=== PATIENT | female | born 1950 | race Caucasian/White ===

== ENCOUNTER 2017-11-10 10:23 | Emergency (ER) | payer BC ==
[2017-11-10 11:17] VITALS: BP 157/64
--- NOTE | 2017-11-10 11:29 | ED ---
Lower Extremity - HPI Summary HPI Summary: 67-year-old female presents with left thigh injury yesterday. She states that she was babysitting a dog and the dog pulled her into a table when she was walking it. She states that it hit her left thigh outer. States she did her daily activities last night but she's been having increasing pain in the area. States the area feels swollen. She denies any chest pain shortness breath. No numbness or tingling. No previous fracture to the area. She is not blood thinners. She has been taking ibuprofen which has been helping. no fam hx of blood clots. is not a smoker. - History of Current Complaint Chief Complaint: UCLowerExtremity Stated Complaint: L THIGH INJURY Time Seen by Provider: 11/10/17 11:18 Pain Intensity: 4 - Allergies/Home Medications Allergies/Adverse Reactions: Allergies Allergy/AdvReac Type Severity Reaction Status Date / Time No Known Allergies Allergy Verified 11/10/17 11:08 Home Medications: Home Medications Ibuprofen TAB* [Motrin TAB* 400 MG] 400 mg PO ONCE 11/10/17 [History Confirmed 11/10/17] Lisinopril TAB* [Prinivil TAB*] 5 mg PO DAILY 11/10/17 [History Confirmed ] PMH/Surg Hx/FS Hx/Imm Hx Endocrine/Hematology History: Denies: Hx Anticoagulant Therapy Cardiovascular History: Reports: Hx Hypertension Respiratory History: Denies: Hx Asthma, Hx Chronic Obstructive Pulmonary Disease (COPD) GI History: Reports: Hx Gastrointestinal Bleed, Hx Ulcer, Other GI Disorders - H. pylori - Surgical History Surgery Procedure, Year, and Place: 2x C sections, D&C, hysterectomy 1989 Infectious Disease History: No Infectious Disease History: Denies: Traveled Outside the [place] in Last 30 Days - Family History Known Family History: Positive: Hypertension - Social History Alcohol Use: Occasionally Substance Use Type: Reports: None Smoking Status (MU): Never Smoked Tobacco Review of Systems Negative: Fever Negative: Chest Pain Negative: Shortness Of Breath Positive: Myalgia - left leg pain All Other Systems Reviewed And Are Negative: Yes Physical Exam Triage Information Reviewed: Yes Vital Signs On Initial Exam: Initial Vitals Temp Pulse Resp BP Pulse Ox 98.9 F 61 18 157/64 100 11/10/17 11:09 11/10/17 11:11/10/17 11:09 11/10/17 11:09 11/10/17 11:09 Vital Signs Reviewed: Yes Appearance: Positive: Well-Appearing Skin: Positive: Warm, Dry Head/Face: Positive: Normal Head/Face Inspection Eyes: Positive: Normal, Conjunctiva Clear ENT: Positive: Pharynx normal Respiratory/Lung Sounds: Positive: Clear to Auscultation, Breath Sounds Present Cardiovascular: Positive: Normal, RRR Musculoskeletal: Positive: Limited @ - left leg, Other - tenderness lateral ascpect of left thigh, area of loculation felt consistent with hematoma, good pulses, sensation grossly intact. Negative: Edema Left - knee Neurological: Positive: Normal Psychiatric: Positive: Normal Diagnostics - Vital Signs Vital Signs Temp Pulse Resp BP Pulse Ox 11/10/17 11:09 98.9 F 61 18 157/64 100 - Laboratory Lab Statement: Any lab studies that have been ordered have been reviewed, and results considered in the medical decision making process. - Radiology femur Xray Interpretation: No Acute Changes Radiology Interpretation Completed By: Radiologist Lower Extremity Course/Dx - Course Course Of Treatment: 67-year-old female presents with left thigh injury yesterday. She states that she was babysitting a dog and the dog pulled her into a table when she was walking it. She states that it hit her left thigh outer. States she did her daily activities last night but she's been having increasing pain in the area. States the area feels swollen. She denies any chest pain shortness breath. No numbness or tingling. No previous fracture to the area. She is not blood thinners. She has been taking ibuprofen which has been helping. no fam hx of blood clots. is not a smoker. On exam tenderness over lateral aspect of left thigh with area of loculation consistent with a hematoma felt. Neurovascular intact. X-ray normal. Will treat with rice. patient has dx of htn so can follow up with primary about blood pressure as is elevated about this time. Patient understands and agrees with plan. - Diagnoses Differential Diagnosis/HQI/PQRI: Positive: Contusion, Fracture (Closed), Strain Provider Diagnoses: Left leg injury Discharge - Sign-Out/Discharge Documenting (check all that apply): Patient Departure - Discharge Plan Condition: Good Disposition: HOME Patient Education Materials: Contusion in Adults (ED) Forms: *Work Release Referrals: Agustin Forbes MD [Primary Care Provider] - Additional Instructions: place ice on area for two days, then switch to heat and massage area Take Tylenol or ibuprofen every 6 hours as needed for pain elevate can use mona on area for compression Follow up with primary care physician Return to ED if develop any new or worsening symptoms - Billing Disposition and Condition Condition: GOOD Disposition: Home Attestation Statement User Type: Provider - I was available for consult. This patient was seen by the [facility]. The patient was not presented to, seen by, or examined by me. -Wilberto
--- NOTE | 2017-11-10 11:57 | RAD ---
HISTORY: left femur injury COMPARISONS: None VIEWS: 4, Frontal and lateral views of the left femur FINDINGS: BONE DENSITY: Normal. BONES: There is no displaced fracture. JOINTS: There is moderate to advanced osteoarthritis of the left hip. ALIGNMENT: There is no dislocation. SOFT TISSUES: There is peripheral arterial calcification. OTHER FINDINGS: None. IMPRESSION: 1. OSTEOARTHRITIS. 2. PERIPHERAL ARTERIAL DISEASE. 3. NO ACUTE OSSEOUS INJURY. IF SYMPTOMS PERSIST, RECOMMEND REPEAT IMAGING.
== END 2017-11-10 12:18 | disposition home or self-care (01) ==
LOC: UCEAST 10:23
DX: S79.922A Unspecified injury of left thigh, initial encounter (principal); I10 Essential (primary) hypertension; W22.03XA Walked into furniture, initial encounter; Y93.K1 Activity, walking an animal; Y92.9 Unspecified place or not applicable; M19.91 Primary osteoarthritis, unspecified site; I73.9 Peripheral vascular disease, unspecified
CPT/HCPCS: 99212; G0463

== ENCOUNTER 2018-06-09 08:27 | Emergency (ER) | payer BC ==
[2018-06-09 08:42] VITALS: BP 144/72
--- NOTE | 2018-06-09 09:55 | UC ---
Throat Pain/Nasal Ever HPI - HPI Summary HPI Summary: 67 yo female presents with runny nose, post nasal drip, and sore throat for the last 2-3 weeks. She has not been taking anything OTC for her symptoms. She is most concerned because she is leaving for [place] tomorrow morning and "wants to be sure her symptoms are nothing". Denies fever, chills, rash, SOB ,n/v. - History of Current Complaint Chief Complaint: UCRespiratory Stated Complaint: COUGH,CONGSETION Time Seen by Provider: 06/09/18 09:55 Hx Obtained From: Patient Onset/Duration: Gradual Onset Pain Intensity: 0 - Allergies/Home Medications Allergies/Adverse Reactions: Allergies Allergy/AdvReac Type Severity Reaction Status Date / Time No Known Allergies Allergy Verified 06/09/18 08:42 PMH/Surg Hx/FS Hx/Imm Hx Cardiovascular History: Hypertension Other History Of: Negative For: Anticoagulant Therapy - Surgical History Surgical History: Yes Surgery Procedure, Year, and Place: 2x C sections, D&C, hysterectomy 1989 - Family History Known Family History: Positive: Hypertension - Social History Lives: With Family Alcohol Use: Occasionally Substance Use Type: None Smoking Status (MU): Never Smoked Tobacco - Immunization History Most Recent Influenza Vaccination: none Most Recent Tetanus Shot: 2016 Vaccination Up to Date: No Review of Systems All Other Systems Reviewed And Are Negative: Yes Constitutional: Positive: Negative Skin: Positive: Negative Eyes: Positive: Negative ENT: Positive: Sore Throat, Nasal Discharge Respiratory: Positive: Negative Cardiovascular: Positive: Negative Gastrointestinal: Positive: Negative Neurovascular: Positive: Negative Neurological: Positive: Negative Psychological: Positive: Negative Physical Exam - Summary Physical Exam Summary: GENERAL: NAD. WDWN. No pain distress. SKIN: No rashes, sores, lesions, or open wounds. HEENT: Head: AT/NC Eyes: EOM intact. Conjunctiva clear without inflammation or discharge. Ears: Hearing grossly normal. TMs intact, no bulging, erythema, or edema. Nose: Nasal mucosa pink and moist. NTTP maxillary and frontal sinus. Throat: Posterior oropharynx without exudates, erythema, or tonsillar enlargement. Uvula midline. NECK: Supple. Nontender. No lymphadenopathy. CHEST: CTAB. No r/r/w. No accessory muscle use. Breathing comfortably and in no distress. CV: RRR. Without m/r/g. Pulses intact. Cap refill <2seconds NEURO: Alert. PSYCH: Age appropriate behavior. Triage Information Reviewed: Yes Vital Signs: Initial Vital Signs Temp 97.5 F 06/09/18 08:38 Pulse 66 06/09/18 08:38 Resp 18 06/09/18 08:38 BP 144/72 06/09/18 08:38 Pulse Ox 99 06/09/18 08:38 Vital Signs Reviewed: Yes Throat Pain/Nasal Course/Dx - Course Course Of Treatment: Suspect allergies/rhinosinusitis. Rx for claritin and flonase. - Differential Dx/Diagnosis Provider Diagnosis: Rhinosinusitis Discharge - Sign-Out/Discharge Documenting (check all that apply): Patient Departure All imaging exams completed and their final reports reviewed: No Studies - Discharge Plan Condition: Stable Disposition: HOME Prescriptions: Fluticasone NASAL SPRAY 50MCG* [Flonase NASAL SPRAY 50MCG*] 2 spray BOTH NARES DAILY #1 btl LoraTADine TAB(NF) [Claritin 10 MG TAB(NF)] 10 mg PO DAILY #30 tab Patient Education Materials: Rhinosinusitis (DC) Referrals: Agustin Forbes MD [Primary Care Provider] - Additional Instructions: If you develop a fever, shortness of breath, chest pain, new or worsening symptoms - please call your PCP or go to the ED. Your blood pressure was high at todays visit. Please see your primary provider within 4 weeks for recheck and re-evaluation. - Billing Disposition and Condition Condition: STABLE Disposition: Home
== END 2018-06-09 10:08 | disposition home or self-care (01) ==
LOC: UCEAST 08:27
DX: J32.9 Chronic sinusitis, unspecified (principal); I10 Essential (primary) hypertension; J02.9 Acute pharyngitis, unspecified
CPT/HCPCS: 99212; G0463